=== PATIENT | male | born 1955 | race Caucasian/White ===

== ENCOUNTER 2018-02-18 18:06 | Observation (INO) | payer OTHER, SELFPAY ==
[2018-02-18] VITALS (8 sets, daily range): BP systolic 116–152; BP diastolic 80–87; PULSE 57–120; RESP 16–25; TEMP 36.7–36.8; O2SAT 97–99; BMI 24.4; BMI 23.8
--- NOTE | 2018-02-18 18:43 | EKG12_ITS ---
Test Reason : PALPS Blood Pressure : / mmHG Vent. Rate : 135 BPM Atrial Rate : 125 BPM P-R Int : 000 ms QRS Dur : 096 ms QT Int : 270 ms P-R-T Axes : 000 001 062 degrees QTc Int : 405 ms Atrial fibrillation Nonspecific ST abnormality Abnormal ECG Confirmed by JAYLA MICHELE, BRIAN ([id number]), credit collections analyst [facility] [facility]OCKWELL ([id number]) on 02/21/2018 1:31:09 PM Referred By: AMANDA/CAMILA Confirmed By:BRIAN DICKERSON MD
--- NOTE | 2018-02-18 18:56 | RAD_ITS ---
STUDY: X-RAY CHEST REASON FOR EXAM: Male, 62 years old. Palpitation TECHNIQUE: Frontal view of the chest COMPARISON: None. FINDINGS: The lungs are clear. There are no pleural effusions. There is no pneumothorax. The heart is normal in size. The visualized osseous structures are within normal limits. RAD/Chest 1 View (Portable) IMPRESSION: No acute thoracic pathology. Electronically Signed: Woodrow Smith, at 19:08 EDT Tel , Service support ,
--- NOTE | 2018-02-18 19:05 | ED.VISSUMM ---
- ER Visit Summary Date of Service: 02/18/18 Chief Complaint: Palpitations History of Present Illness: The patient is a 62 M presenting with palpitations. This started presently 4 hours prior to arrival. Patient feels his heart racing with irregular heartbeat. He denies chest pain or shortness of breath. Denies dizziness or syncope. He has not had these symptoms in the past. Denies fever or cough. He has history of Graves' disease. His medication dose was changed 4 weeks ago. No other known medical problems. He is not a smoker. Physical Examination: Vitals are stable. Heart rate 135 patient is afebrile. Alert no acute distress. HEENT exam is unremarkable. Neck is supple. Lungs are clear and equal bilaterally. Heart is irregularly irregular Abdomen is soft nontender nondistended. Extremities are unremarkable. Skin is warm and dry. No focal neurologic deficit. Remainder of exam is unremarkable. Emergency Department Course and Treatment: EKG A. fib rate of 135. He is given Cardizem IV and aspirin. CBC, chemistries unremarkable other than glucose 152. Troponin is negative. Chest x-ray shows no acute process. TSH 0.77. Repeat heart rate is 87. Will discuss with the hospitalist for observation. Disposition: Observation Impression: New onset atrial fibrillation This note was generated with [employer] dictation software. It may contain incorrect words, spelling, and punctuation that were not noted in review of the chart prior to signing ED Disposition - Plan for ED Patient: Chief Complaint: Palpitations Referrals: Anuel Mobley III, MD [Primary Care Provider] -
[2018-02-18 19:11] LABS: Absolute Lymphocyte Count 2.29 X10^3/ul (0.83-4.51); Absolute Neutrophil Count 3.4 X10^3/uL (2.0-7.7); Basophil# 0.04 X10^3/uL; Basophil% 0.6 % (0-1); Hematocrit 46.3 % (40-54); Hemoglobin 15.8 g/dl (13.0-16.5); Lymphocyte # 2.29 X10^3/ul (4.0); Lymphocyte % 34.4 % (19-41); Mean Corp Hgb Conc 34.1 g/gl (32-36); Mean Corpuscular Hgb 31.9 pg (27.0-32.0); Mean Corpuscular Volume 93.5 fL (80-94); Mean Platelet Vol. 10.1 fl (6.2-12.0); Monocyte# 0.72 X10^3/uL; Monocyte% 10.8 % (0-10); Neutrophil % 51.2 % (47-70); Platelet Count 162 K/mm3 (150-450); RBC Distribution Width CV 13.7 % (11.6-14.6); RBC Distribution Width SD 45.2 fl (35.1-43.9); Red Blood Count 4.95 M/mm3 (4.6-6.2); White Blood Count 6.7 K/mm3 (4.4-11.0)
[2018-02-18 19:13] LABS: POSITIVE COUNT NO; POSITIVE DIFFERENTIAL NO; POSITIVE MORPHOLOGY NO
[2018-02-18 19:16] LABS: Anion Gap 7 (5-15); BUN 12 mg/dL (7-18); BUN/Creat Ratio 13.5 RATIO (10-20); Calcium,Total 8.6 mg/dL (8.5-10.1); Chloride 109 mmol/L (98-107); Creatinine, Serum 0.89 mg/dL (0.70-1.30); EST Glomerular Filtration Rate 92 mL/min (>60); Est Glom Filt Rate - Afr Amer 112 mL/min (>60); Estimated Creatinine Clearance 95.67 ml/min; Glucose 152 mg/dL (74-106); Potassium 3.8 mmol/L (3.5-5.1); Sodium Level 142 mmol/L (136-145)
[2018-02-18] MEDS: dilTIAZem 25 MG/5 ML Vial 10 MG IV BOLUS (19:16)
[2018-02-18] MEDS: Aspirin 325 MG Tablet PO (19:16)
[2018-02-18 19:39] LABS: Thyroid Stim Hormone (TSH) 0.77 uIU/mL (0.358-3.74)
--- NOTE | 2018-02-18 20:16 | PCM.HP.STD ---
Problem List (1) New onset atrial fibrillation Status: Acute (2) Graves disease Status: Chronic History of Present Illness Date of Admission: 02/18/18 Chief Complaint: Palpitation. The patient is a 62 year old M with past medical history as mentioned above presented to the emergency room because of palpitation. His symptoms started around 3:30 PM today when he was sitting on a chair and started having palpitation that described as racing heart with irregular heartbeats, associated with funny feeling that he could not describe, lasted until he came to the emergency room, improved after he received IV Cardizem in the emergency room, no associated symptoms and without aggravating or relieving factors. He denied any chest pain, shortness of breath, dizziness, lightheadedness, syncope or presyncope. He denied abdominal pain, nausea or vomiting. He had a history of Graves' disease and he has been on methimazole and his dose was changed around 4 weeks ago from 5 mg methimazole up to 10 mg daily. In the emergency department, patient was in A. fib with RVR, heart rate has been in the 130s. Other vital signs were stable. He received 1 dose of IV Cardizem and heart rate slowed down to 70s, blood pressure remained stable. He remained in A. fib. Routine blood work was unremarkable troponin was negative. TSH was normal at 0.77. Chest x-ray showed no acute infiltrate, consolidation or effusion. He is being admitted for new onset A. fib with RVR. Past Medical History Past Medical History (Chronic Problems): Chronic Problems Graves disease (Chronic) Allergies No Known Allergies Allergy (Verified 11/12/16 07:41) Home Medications: Ambulatory Orders Medication Instructions Recorded Methimazole [Tapazole] 10 mg PO DAILY 02/18/18 Surgical History: - - Meniscal tear repair. Psychiatric History: No pertinent psych hx Lives: Spouse/ Significant Other Smoking Status: Never smoker Alcohol: None Drugs: None - *Family History Maternal History Items: No pertinent history Paternal History Items: No pertinent history Review of Systems Constitutional: Denies: Anorexia, Chills, Fever, Weakness Eyes: Denies: Blurred vision, Double vision, Drainage, Redness HEENT: Denies: Difficulty Hearing, Ear Pain, Eye Pain, Nasal Congestion, Sore Throat Cardiovascular: Reports: Palpitations. Denies: Chest Pain, Chest Pressure, Chest Tightness, Heaviness, Light Headedness, Orthopnea, Syncope Respiratory: Denies: Cough, Pleuritic Pain, Shortness of Breath, Sputum production, Wheezing Gastrointestinal: Denies: Abdominal Pain, Constipation, Diarrhea, Nausea, Vomiting Genitourinary: Denies: Dysuria, Frequency, Hematuria Musculoskeletal: Denies: Arm Pain, Back Pain, Foot Pain Skin: Denies: Dryness, Rash Neurological: Denies: Balance problems, Double vision, Change in Speech, Slurred speech, Focal weakness, Headaches, Incoordination Psychiatric: Denies: Anxiety, Depression Endocrine: Denies: Change in Body Habitus, Polydipsia VTE Information - Inpt Only VTE Present on Admission: No VTE Mechan Device Prophylaxis: None VTE Pharm Prophylaxis ordered?: Yes Patient Problems: Active and Suspected Problems New onset atrial fibrillation (Acute) - Physical Exam General: Alert, Oriented x3, Cooperative, No apparent distress HEENT: Atraumatic, PERRLA, EOMI Oral: Moist Mucosa, No Gingival or Mucosal Lesions/ Ulcerations Neck: Supple, No JVD, Negative Carotid Bruits, Trachea Midline, Thyroid Normal Size and Texture Lungs: Clear to auscultation, No rhonchi, No wheeze, No rales Cardiovascular: Normal S1, Normal S2, No murmurs, PMI Normal, Irregular Rate Abdomen: Bowel Sounds Present, Soft, Non Tender, Non-Distended, No Hepato-splenomegaly Extremities: No clubbing, No cyanosis, No edema Skin: No rashes, No breakdown Lymphatic: No Cervical, Supraclavicular, or Inguinal Adenopathy Neurological: Cranial nerves II-XII grossly intact, Motor Exam 5/5 strength throughout Psych/Mental Status: Normal Affect, Appropriate, Alert and oriented to time, place, person, mood and affect Vital Signs Temp Pulse Resp BP Pulse Ox 98.2 F 87 25 H 116/84 H 99 02/18/18 18:08 02/18/18 19:40 02/18/18 19:40 02/18/18 19:40 02/18/18 19:40 Oxygen Flow Rate (L/min) 2 Oxygen Delivery Method Nasal Cannula Weight: 180 lb Body Mass Index (BMI) 24.4 Laboratory Tests Past 24 Hrs 02/18/18 02/18/18 02/18/18 18:19 18:19 18:19 WBC 6.7 RBC 4.95 Hgb 15.8 Hct 46.3 MCV 93.5 MCH 31.9 MCHC 34.1 RDW 13.7 RDW Differential 45.2 H Plt Count 162 MPV 10.1 Immature Gran % (Auto) 0.000 Neut % (Auto) 51.2 Lymph % (Auto) 34.4 [place] % (Auto) 10.8 H Eos % (Auto) 3.0 Baso % (Auto) 0.6 Absolute Neuts (auto) 3.4 Absolute Lymphs (auto) 2.29 Total Counted Not Reportable Sodium 142 Potassium 3.8 Chloride 109 H Carbon Dioxide 26.0 Anion Gap 7 BUN 12 Creatinine 0.89 Estim Creat Clear Calc 95.67 Est GFR (MDRD) Af Amer 112 Est GFR (MDRD) Non-Af 92 BUN/Creatinine Ratio 13.5 Glucose 152 H Calcium 8.6 Troponin I < 0.02 TSH 0.77 Clinical Impression(s) from Imaging Studies Chest X-Ray 02/18/18 18:56 IMPRESSION: No acute thoracic pathology. Electronically Signed: Woodrow Smith, at 19:08 EDT Tel , Service support , Assessment/Plan Active and Suspected Problems New onset atrial fibrillation (Acute) This is a 62 years old male patient presented to the emergency room because of palpitation and irregular heartbeats, found to have new onset A. fib with RVR and he is being admitted for evaluation. #1 new onset A. fib with RVR: Without prior history of cardiac disease. He does have a history of Graves' disease and she is on methimazole. Dose of methimazole change 4 weeks ago. Initially, EKG revealed A. fib with RVR, rate was in the 135. Received 1 dose of IV Cardizem, rate is down to 70s, blood pressure stable. TSH was normal. Troponin is negative. Chest x-ray showed no acute findings. Plan: Admit to PCU, cardiac monitoring, serial cardiac enzymes, repeat EKG tomorrow morning, 2D echocardiogram, check free and total T3, free and total T4, aspirin 81 mg p.o. daily, start metoprolol 25 mg p.o. twice daily for rate control. His CHA2 DS2-VASc score is 0. He is at low risk for stroke and no indication for anticoagulation. #2 Graves' disease: On methimazole. Dose increased to 10 mg p.o. daily 4 weeks ago. TSH is normal. Will check T4 total and free as well as T3 total and free. #3 DVT prophylaxis: Subcu Lovenox. This note was generated with [employer] dictation software. It may contain incorrect words, spelling, and punctuation that were not noted in checking the note before signing. Code Visit Inpatient E&M: 74661 Init Hosp L3
--- NOTE | 2018-02-18 20:55 | ECHOCS_ITS ---
Reason For Study: Afib Procedure This was a 2D Doppler, Color Flow transthoracic echocardiogram. Exam performed portable in patient room. Left Ventricle Normal LV size. Left ventricular systolic function is normal. The estimated ejection fraction is 60 %. There is evidence of diastolic dysfunction. No regional wall motion abnormalities noted. Right Ventricle Normal RV size. Normal systolic function. Atria Normal left atrium. The right atrium is mildly enlarged. Mitral Valve Mild mitral valve prolapse. Tricuspid Valve Normal tricuspid valve. Mild tricuspid valve insufficiency. Pulmonary artery systolic pressure is 29 mmHg. Aortic Valve Normal aortic valve. Trisinus/trileaflet aortic valve. Pulmonic Valve Normal pulmonic valve. Great Vessels Normal aortic root. The pulmonary artery is normal size. Normal inferior vena cava. Pericardium/Pleural No pericardial effusion. Medication Diluted definity 2ml given slow IV push to enhance endocardial definition. MMode/2D Measurements & Calculations LVIDd: 5.2 cm IVSd: 1.1 cm Ao root diam: 3.9 cm LVIDs: 3.2 cm LVPWd: 0.81 cm LA dimension: 2.8 cm RVDd: 3.9 cm FS: 37.8 % LAV(MOD-sp4): 37.4 ml LA A4 area: 16.2 cm2 RA A4 area: 25.1 cm2 Time Measurements MV dec time: 0.33 sec Doppler Measurements & Calculations MV E max seven: 55.5 cm/sec Lat Peak E' Seven: 11.1 cm/sec Med Peak E' Seven: 10.2 cm/sec MV A max seven: 45.0 cm/sec E/E' lat: 5.0 E/E' med: 5.4 MV E/A: 1.2 MV V2 max: 59.6 cm/sec MV P1/2t max seven: 60.8 cm/sec Ao V2 max: 93.8 cm/sec MV max P.4 mmHg MV P1/2t: 152.5 msec Ao max P.5 mmHg MV V2 mean: 33.5 cm/sec MV dec slope: 116.7 cm/sec2 Ao V2 mean: 60.1 cm/sec MV mean P.52 mmHg MVA(P1/2t): 1.4 cm2 Ao mean P.7 mmHg MV V2 VTI: 22.2 cm Ao V2 VTI: 20.2 cm LV V1 max: 83.0 cm/sec PA V2 max: 62.1 cm/sec TR max seven: 257.1 cm/sec LV V1 max P.8 mmHg TR max P.4 mmHg LV V1 mean P.3 mmHg LV V1 mean: 51.5 cm/sec LV V1 VTI: 19.5 cm Interpretation Summary Normal LV size. Left ventricular systolic function is normal. The estimated ejection fraction is 60 %. Mild mitral valve prolapse. Mild tricuspid valve insufficiency. Contrast injection was performed. Ordering Physician: Sheila Thomason Referring Physician: YARIEL Mobley M.D. Performed By: Sony Ortega RCS
[2018-02-18] MEDS: 0.9% Normal Saline 1,000 ML 75 ML IV (21:31)
[2018-02-18] MEDS: Metoprolol Tartrate 25 MG Tablet PO (21:31)
[2018-02-18] MEDS: 0.9% NaCl Peripheral Flush Adult/Peds IV (21:31)
[2018-02-18 21:43] LABS: Free T3 2.9 pg/mL (2.18-3.98); T4 Total, Thyroxin 7.4 ug/dL (4.5-12.1)
[2018-02-19] VITALS (8 sets, daily range): BP systolic 115–123; BP diastolic 65–75; PULSE 54–79; RESP 16; TEMP 36.8–36.9; O2SAT 95–98
--- NOTE | 2018-02-19 05:55 | EKG12_ITS ---
Test Reason : RHYTHM CHANGE Blood Pressure : / mmHG Vent. Rate : 058 BPM Atrial Rate : 058 BPM P-R Int : 176 ms QRS Dur : 102 ms QT Int : 414 ms P-R-T Axes : 023 007 032 degrees QTc Int : 406 ms Sinus bradycardia Otherwise normal ECG When compared with ECG of 21-FEB-2012 09:43, No significant change was found Confirmed by LIS MICHELE, OLIVIA ([id number]), associate entertainment editor [facility] [facility] ([id number]) on 02/21/2018 2:26:49 PM Referred By: YOEL Confirmed By:OLIVIA HAYS MD
--- NOTE | 2018-02-19 06:26 | NURSING ---
Critical platelet result of 49 given to Radha Melchor RN
[2018-02-19] MEDS: Methimazole 5 MG Tablet 10 MG PO (09:26)
[2018-02-19] MEDS: Metoprolol Tartrate 25 MG Tablet PO (09:26)
[2018-02-19] MEDS: Aspirin 81 MG TAB.CHEW PO (09:26)
[2018-02-19] MEDS: Enoxaparin 40 MG/0.4 ML Syringe SC (09:26)
[2018-02-19 09:32] LABS: T3 Total - Triiodothyronine 1.04 ng/mL (0.6-1.81)
[2018-02-19 10:17] LABS: Hemoglobin A1c 5.4 % (4.2-6.3)
--- NOTE | 2018-02-19 11:24 | DCINST_ITS ---
Addendum entered and electronically signed by BILLY Natarajan 02/19/18 12:20: Please follow up with Dr. Polk with [facility] in 1-2 weeks. Original Note: - Discharge Diagnoses Current Active Problems: Current Active and Chronic Problems Graves disease (Chronic) New onset atrial fibrillation (Acute) You will use the following diet at home:: Cardiac Your food should be the consistency of: Regular Your liquids should be the consistency of: Regular/Thin Discharge Activity: Return to Normal Activity Allergies/Adverse Reactions: Allergies No Known Allergies Allergy (Verified 02/18/18 21:01) Medications to take at Discharge Methimazole [Tapazole] 10 mg PO DAILY 02/18/18 Aspirin [Aspirin, Baby] 81 mg PO DAILY@0800 tab.chew 02/19/18 Metoprolol Tartrate [Lopressor (beta sanket)] 25 mg PO BID #60 tab 02/19/18 The following prescriptions were given: Metoprolol Tartrate [Lopressor (beta sanket)] 25 mg PO BID #60 tab Primary Care Physician: Anuel Mobley III, MD [Primary Care Provider] - Please follow up with your Primary Care Physician in: 1-2 weeks Please Follow Up With: Endocrinology When: 1-2 weeks Proposed Discharge Date: 02/19/18
--- NOTE | 2018-02-19 13:23 | PCM.DC.SUM ---
Discharge Date and Diagnosis Date of Admission: 02/18/18 Date of Discharge: 02/19/18 - Primary Discharge Diagnosis New onset Afib with RVR Graves' Disease - Secondary Discharge Diagnosis Chronic Problems Graves disease (Chronic) Hospital Course and Treatment Imaging Results: RAD/Chest 1 View (Portable) IMPRESSION: No acute thoracic pathology. Echo: Interpretation Summary Normal LV size. Left ventricular systolic function is normal. The estimated ejection fraction is 60 %. Mild mitral valve prolapse. Mild tricuspid valve insufficiency. Contrast injection was performed. Operations: None Procedures: 2-D Echocardiogram Summary of Care Provided: Physical exam on day of discharge: General: Resting comfortably NAD Psych: A/Ox3 normal affect HEENT: PEARRLA AT NC Neck: Supple NT CV: RRR no m/t/r/g/h Resp: CTA Abd: [id number] Soft NT no guarding or rigidity Ext: DP2+= no edema Skin: W/D normal turgor Lymph/Heme: No active bleeding or adenopathy Neuro: CN2-12 intact Hospital course: The patient is a 62 year old M with a hx of graves' disease who presented to the ER with palpitations and fatigue. He was found to be in AF with RVR. He recevied 10 mg IV cardizem bolus in the ER and converted. He was then admitted to the hospital and placed on metoprolol 25 twice daily. He had negative EKG, troponin, chest x-ray. He was noted that the patient had stopped taking his Toprol 50 about a month prior. Troponin was negative ?4, TSH, free T4, thyroxine, free T3, total T3 were all negative. He presented with some hyperglycemia and A1c was checked, but it was normal at 5.4. He also had his methimazole decreased by 5 mg per day about a month prior as well. We obtained an echocardiogram which was unremarkable. After being admitted he had no further issues he had no symptoms. His chads vascular score was 0 so he was now placed on oral anticoagulation. He was discharged home in stable condition he was advised to follow-up with cardiology as an outpatient 1-2 weeks, follow-up with his steam press operator, and follow-up with his PCP. This patient was seen by Roger Cedeno PA-C under the supervision of Doctor Dennis. [] Discharge Diet: Low fat/ Low Cholesterol, 2000 mg Sodium Diet Discharge Activity: Return to Normal Activity Home Medications: Medications to take at Discharge Methimazole [Tapazole] 10 mg PO DAILY 02/18/18 Aspirin [Aspirin, Baby] 81 mg PO DAILY@0800 tab.chew 02/19/18 Metoprolol Tartrate [Lopressor (beta sanket)] 25 mg PO BID #60 tab 02/19/18 Following Prescrptions Were Given to Patient: Metoprolol Tartrate [Lopressor (beta saknet)] 25 mg PO BID #60 tab Primary Care Physician: Anuel Mobley III, MD [Primary Care Provider] - Please follow up with your Primary Care Physician in: 1-2 weeks Please Follow Up With: Endocrinology When: 1-2 weeks Please Follow Up With: Jamaal Polk MD When: 1-2 weeks Disposition: Home Minutes spent on discharge:: 35 Patient Condition:: Stable Medical Necessity - Tobacco Use Smoking Status: Never smoker Meaningful Use Info Meaningful Use Diagnoses (Choose all that apply): None applicable
--- NOTE | 2018-02-19 13:29 | DS.PCM_ITS ---
Discharge Date and Diagnosis Date of Admission: 02/18/18 Date of Discharge: 02/19/18 - Primary Discharge Diagnosis New onset Afib with RVR Graves' Disease - Secondary Discharge Diagnosis Chronic Problems Graves disease (Chronic) Hospital Course and Treatment Imaging Results: RAD/Chest 1 View (Portable) IMPRESSION: No acute thoracic pathology. Echo: Interpretation Summary Normal LV size. Left ventricular systolic function is normal. The estimated ejection fraction is 60 %. Mild mitral valve prolapse. Mild tricuspid valve insufficiency. Contrast injection was performed. Operations: None Procedures: 2-D Echocardiogram Summary of Care Provided: Physical exam on day of discharge: General: Resting comfortably NAD Psych: A/Ox3 normal affect HEENT: PEARRLA AT NC Neck: Supple NT CV: RRR no m/t/r/g/h Resp: CTA Abd: [id number] Soft NT no guarding or rigidity Ext: DP2+= no edema Skin: W/D normal turgor Lymph/Heme: No active bleeding or adenopathy Neuro: CN2-12 intact Hospital course: The patient is a 62 year old M with a hx of graves' disease who presented to the ER with palpitations and fatigue. He was found to be in AF with RVR. He recevied 10 mg IV cardizem bolus in the ER and converted. He was then admitted to the hospital and placed on metoprolol 25 twice daily. He had negative EKG, troponin, chest x-ray. He was noted that the patient had stopped taking his Toprol 50 about a month prior. Troponin was negative ?4, TSH, free T4, thyroxine, free T3, total T3 were all negative. He presented with some hyperglycemia and A1c was checked, but it was normal at 5.4. He also had his methimazole decreased by 5 mg per day about a month prior as well. We obtained an echocardiogram which was unremarkable. After being admitted he had no further issues he had no symptoms. His chads vascular score was 0 so he was now placed on oral anticoagulation. He was discharged home in stable condition he was advised to follow-up with cardiology as an outpatient 1-2 weeks, follow- up with his certified travel counselor, and follow-up with his PCP. This patient was seen by Roger Cedeno PA-C under the supervision of Doctor Dennis. [] Discharge Diet: Low fat/ Low Cholesterol, 2000 mg Sodium Diet Discharge Activity: Return to Normal Activity Home Medications: Medications to take at Discharge Methimazole [Tapazole] 10 mg PO DAILY 02/18/18 Aspirin [Aspirin, Baby] 81 mg PO DAILY@0800 tab.chew 02/19/18 Metoprolol Tartrate [Lopressor (beta sanket)] 25 mg PO BID #60 tab 02/19/18 Following Prescrptions Were Given to Patient: Metoprolol Tartrate [Lopressor (beta sanket)] 25 mg PO BID #60 tab Primary Care Physician: Anuel Mobley III, MD [Primary Care Provider] - Please follow up with your Primary Care Physician in: 1-2 weeks Please Follow Up With: Endocrinology When: 1-2 weeks Please Follow Up With: Jamaal Polk MD When: 1-2 weeks Disposition: Home Minutes spent on discharge:: 35 Patient Condition:: Stable Medical Necessity - Tobacco Use Smoking Status: Never smoker Meaningful Use Info Meaningful Use Diagnoses (Choose all that apply): None applicable
== END 2018-02-19 12:29 | disposition home or self-care (01) ==
LOC: ED 19:24 → PCU 20:42
PROVIDERS: Physician Assistant; Admitting Provider Hospitalist; Emergency Provider Emergency Medicine; Family Provider Family Medicine; PCP Family Medicine; Visit Provider Internal Medicine
DX: I48.91 Unspecified atrial fibrillation (principal); E05.00 Thyrotoxicosis with diffuse goiter without thyrotoxic crisis or storm; Z79.899 Other long term (current) drug therapy
CPT/HCPCS: 36415; 71045; 80048; 83036; 84436; 84439; 84443; 84480; 84481; 84484; 85025; 93005; 93306; 96361; 96372; 96374; 99218; 99283; J7030; Q9957; A4216; C8929; G0378

== ENCOUNTER 2018-02-27 22:30 | Emergency (ER) | payer OTHER, SELFPAY ==
[2018-02-27 22:32] VITALS: BP 133/81; PULSE 61; RESP 18; TEMP 36.8; O2SAT 95; BMI 23.7
--- NOTE | 2018-02-27 22:37 | ED.RN ---
CALLED FOR AN EKG PER REQUEST OF NURSE. PULLED OLD EKG PER PROTOCAL.
[2018-02-27 22:45] VITALS: BP 137/85; PULSE 59; RESP 19; O2SAT 97
--- NOTE | 2018-02-27 22:55 | EKG12_ITS ---
Test Reason : PALPITATIONS Blood Pressure : / mmHG Vent. Rate : 061 BPM Atrial Rate : 061 BPM P-R Int : 170 ms QRS Dur : 100 ms QT Int : 408 ms P-R-T Axes : 052 006 036 degrees QTc Int : 410 ms Normal sinus rhythm Normal ECG Confirmed by LIS MICHELE, OLIVIA ([id number]), legal editor [facility] ([id number]) on 03/02/2018 2:04:33 PM Referred By: ELSIE Confirmed By:OLIVIA HAYS MD
[2018-02-27 22:56] VITALS: O2SAT 96
--- NOTE | 2018-02-27 22:56 | ED.VISSUMM ---
- ER Visit Summary Date of Service: 02/27/18 Chief Complaint: Palpitations History of Present Illness: The patient is a 62 M with Graves' disease and recent admission for paroxysmal atrial fibrillation who presents for palpitations since yesterday. Patient has been having episodes of his heart racing, with associated fatigue, nausea, and now a headache. Patient currently is not having sensation of palpitations. He denies chest pain, shortness of breath, dizziness or lightheadedness, weight loss, fevers, sweats. He was evaluated 1 week ago and diagnosed with paroxysmal atrial fibrillation. He is on metoprolol now. He been on methimazole and a beta-sanket for treatment of his Graves' disease, but the medications were changed approximately 1 month prior to onset of his A. fib. Patient is currently on methimazole and now on metoprolol since the hospitalization. He denies alcohol, tobacco or drug use. He is not on any coagulants. He takes one baby aspirin daily. She has an appointment with Dr. Polk tomorrow. Physical Examination: Vital signs: afebrile, hemodynamically stable, no hypoxia on room air General: well nourished, well developed, in no distress Skin: warm, dry, no rash, no pallor HEENT: normocephalic and atraumatic; PERRL, EOMI, no exophthalmos, moist mucous membranes Cardiovascular: regular rate and rhythm without murmurs, no peripheral edema, 2+ pulses all distal extremities Respiratory: No increased work of breathing, lungs are clear to auscultation bilaterally, no rales, rhonchi or wheezing Abdominal: Abdomen is soft, nontender with normoactive bowel sounds, no guarding or rebound, no masses MSK: Moves all extremities, no deformities, normal strength Neuro: Awake and alert, oriented ?4. No facial droop, sensation and motor function intact and symmetric Test Results: Abnormal Lab Results 02/27/18 02/27/18 22:40 22:40 WBC 6.6 RBC 4.51 L Hgb 14.1 Hct 42.0 MCV 93.1 MCH 31.3 MCHC 33.6 RDW 13.6 RDW Differential 46.2 H Plt Count 148 L MPV 10.2 Immature Gran % (Auto) 0.000 Neut % (Auto) 73.7 H Lymph % (Auto) 13.7 L [place] % (Auto) 11.3 H Eos % (Auto) 1.1 Baso % (Auto) 0.2 Absolute Neuts (auto) 4.9 Absolute Lymphs (auto) 0.91 Total Counted Not Reportable Sodium 139 Potassium 3.9 Chloride 105 Carbon Dioxide 26.0 Anion Gap 8 BUN 19 H Creatinine 0.95 Estim Creat Clear Calc 89.63 Est GFR (MDRD) Af Amer 104 Est GFR (MDRD) Non-Af 86 BUN/Creatinine Ratio 20.0 Glucose 129 H Calcium 8.2 L Magnesium 1.9 Troponin I < 0.015 TSH 0.86 Emergency Department Course and Treatment: EKG shows a normal sinus rhythm at a rate of 61, no ischemic changes and unchanged from patient's baseline EKG. Cardiac monitoring shows no ectopy or episodes of A. fib. Workup was performed to look for any possible lab derangements that might have made patient's threshold for going back into A. fib more likely. TSH was within normal limits. Troponin negative. No electrolyte derangements. No leukocytosis or significant anemia. Patient was given IV hydration in the emergency department. Because of his headache, fatigue and nausea, we did discuss that he may be coming down with a viral illness. He is well-appearing at this time and on reevaluation has had no other episodes of palpitations. He feels well enough to go home, and he already has an appointment for follow-up with Dr. Polk tomorrow. Patient will keep this appointment. He will return if any worsening of his condition. Discharged home. Treatment Plan: [] Disposition: [] Impression: Paroxysmal atrial fibrillation This note was generated with [employer] dictation software. It may contain incorrect words, spelling, and punctuation that were not noted in review of the chart prior to signing ED Disposition - Plan for ED Patient: Disposition: Home or Assisted Living Chief Complaint: Palpitations Instructions: ED Afib Referrals: Jamaal Polk MD [STAFF PHYSICIAN] - 1 Day Anuel Mobley III, MD [Primary Care Provider] - Additional Instructions: Please keep your appointment with Dr. Polk tomorrow. Continue all medications as prescribed. If you have any further episodes of palpitations, especially if you have associated shortness of breath, chest pain, lightheadedness or dizziness, or any other complaints, please return immediately to the emergency department for another evaluation.
[2018-02-27] MEDS: 0.9% Normal Saline 1,000 ML 1000 ML IV (23:01)
[2018-02-27 23:06] LABS: Absolute Lymphocyte Count 0.91 X10^3/ul (0.83-4.51); Absolute Neutrophil Count 4.9 X10^3/uL (2.0-7.7); Basophil# 0.01 X10^3/uL; Basophil% 0.2 % (0-1); Eosinophil# 0.07 X10^3/uL; Eosinophils% 1.1 % (0-5); Hemoglobin 14.1 g/dl (13.0-16.5); Lymphocyte # 0.91 X10^3/ul (4.0); Lymphocyte % 13.7 % (19-41); Mean Corp Hgb Conc 33.6 g/gl (32-36); Mean Corpuscular Hgb 31.3 pg (27.0-32.0); Mean Corpuscular Volume 93.1 fL (80-94); Mean Platelet Vol. 10.2 fl (6.2-12.0); Monocyte# 0.75 X10^3/uL; Monocyte% 11.3 % (0-10); Neutrophil # 4.89 X10^3/uL (2.7-7.7); Neutrophil % 73.7 % (47-70); POSITIVE COUNT NO; POSITIVE DIFFERENTIAL NO; POSITIVE MORPHOLOGY NO; Platelet Count 148 K/mm3 (150-450); RBC Distribution Width CV 13.6 % (11.6-14.6); RBC Distribution Width SD 46.2 fl (35.1-43.9); Red Blood Count 4.51 M/mm3 (4.6-6.2); White Blood Count 6.6 K/mm3 (4.4-11.0)
[2018-02-27 23:24] LABS: Anion Gap 8 (5-15); BUN 19 mg/dL (7-18); Calcium,Total 8.2 mg/dL (8.5-10.1); Chloride 105 mmol/L (98-107); Creatinine, Serum 0.95 mg/dL (0.70-1.30); EST Glomerular Filtration Rate 86 mL/min (>60); Est Glom Filt Rate - Afr Amer 104 mL/min (>60); Estimated Creatinine Clearance 89.63 ml/min; Glucose 129 mg/dL (74-106); Magnesium 1.9 mg/dL (1.6-2.6); Potassium 3.9 mmol/L (3.5-5.1); Sodium Level 139 mmol/L (136-145); Thyroid Stim Hormone (TSH) 0.86 uIU/mL (0.358-3.74)
[2018-02-27 23:35] VITALS: BP 118/70; PULSE 58; RESP 16; O2SAT 96
--- NOTE | 2018-02-27 23:40 | ED.DEP ---
ED Disposition - Plan for ED Patient: Disposition: Home or Assisted Living Chief Complaint: Palpitations Instructions: ED Afib Referrals: Anuel Mobley III, MD [Primary Care Provider] - Jamaal Polk MD [STAFF PHYSICIAN] - 1 Day Additional Instructions: Please keep your appointment with Dr. Polk tomorrow. Continue all medications as prescribed. If you have any further episodes of palpitations, especially if you have associated shortness of breath, chest pain, lightheadedness or dizziness, or any other complaints, please return immediately to the emergency department for another evaluation.
[2018-02-27 23:47] VITALS: BP 133/96; PULSE 66; RESP 16; O2SAT 96
== END 2018-02-27 23:52 | disposition home or self-care (01) ==
PROVIDERS: Emergency Provider Emergency Medicine; Family Provider Family Medicine; PCP Family Medicine
DX: I48.0 Paroxysmal atrial fibrillation (principal); E05.00 Thyrotoxicosis with diffuse goiter without thyrotoxic crisis or storm; Z79.82 Long term (current) use of aspirin; Z79.899 Other long term (current) drug therapy
CPT/HCPCS: 80048; 83735; 84443; 84484; 85025; 93005; 96360; 99284; J7030; A4216

== ENCOUNTER → 2018-09-18 10:54 | Outpatient (CLI) | payer OTHER, SELFPAY ==
[2018-08-24 12:45] VITALS: BMI 24.4
[2018-09-18 12:13] LABS: T4 Free Direct 0.93 ng/dL (0.76-1.46)
== END ==
PROVIDERS: Family Provider Family Medicine; PCP Family Medicine
DX: E05.00 Thyrotoxicosis with diffuse goiter without thyrotoxic crisis or storm (principal)
CPT/HCPCS: 36415; 84439; 84481

== ENCOUNTER → 2019-05-21 | Outpatient (CLI) | payer OTHER, SELFPAY ==
--- NOTE | 2019-05-21 09:17 | US_ITS ---
STUDY: ABDOMINAL ULTRASOUND REASON FOR EXAM: Male, 63 years old. Abdominal pain TECHNIQUE: Transabdominal ultrasound was performed with real-time and static díaz scale imaging. TECHNICAL QUALITY: Adequate. COMPARISON: None. FINDINGS: Liver: The liver measures 13.6 cm. There is normal echogenicity of the liver. The bile ducts are within normal limits. There is hepatic color flow. The direction of portal flow is hepatopetal. There is no demonstrated mass lesion. Portal vein measurement: Gallbladder: Normal distended gallbladder. The gallbladder wall measures 1.4 mm. There is a negative sonographic Ordonez's sign. There is no pericholecystic fluid. There are no gallstones. Common Bile Duct (C.B.D.): The common bile duct measures 4.3 mm. Pancreas: Normal size of the head, body and tail of the pancreas. There is normal echogenicity of the pancreas. There is no demonstrated pancreatic mass or cyst. Spleen: Normal size of the spleen. The spleen measures 10.8 x 5 x 3.9 cm. Right Kidney: Normal size of the right kidney. The right kidney measures 10.4 x 5.9 x 5.0 cm. Normal renal cortex. The right cortex measures 1.1 cm. There is no demonstrated renal mass or cyst. There is no right hydronephrosis. Left Kidney: Normal size of the left kidney. The left kidney measures 10.7 x 5 x 4.4 cm. Normal renal cortex. The left cortex measures 1.3 cm. There is no demonstrated renal mass or cyst. There is no left hydronephrosis. Aorta: 2.3 x 2.2 x 2.2 I.V.C.: The IVC is patent. There is no ascites. US/Abdomen Complete IMPRESSION: Normal ultrasound of the abdomen. There is NO cholelithiasis, cholecystitis or biliary ductal dilatation. Electronically Signed: Adilson Hernandez MD at 17:08 EDT , Service support ,
== END | disposition home or self-care (01) ==
LOC: US 09:14
PROVIDERS: Family Provider Family Medicine; PCP Family Medicine; Referring Provider Internal Medicine Endocrinology, Diabetes & Metabolism; Visit Provider Internal Medicine Endocrinology, Diabetes & Metabolism
DX: R74.8 Abnormal levels of other serum enzymes (principal)
CPT/HCPCS: 76700

== ENCOUNTER → 2022-09-14 | Outpatient (CLI) | payer MEDICARE, BC, SELFPAY ==
--- NOTE | 2022-09-14 06:18 | ECHOD_ITS ---
Version 2 Reason For Study: CHEST PAIN Procedure This was a 2D Doppler, Color Flow transthoracic echocardiogram. Exam performed in department. Left Ventricle Normal LV size. Left ventricular systolic function is normal. The estimated ejection fraction is 60 %. Stage 1 diastolic dysfunction. No regional wall motion abnormalities noted. Right Ventricle Normal RV size. Normal systolic function. Atria Normal left atrium. Normal right atrium. Hypermobile atrial septum. Bubble contrast study negative for right to left interatrial shunt. Mitral Valve Normal mitral valve. Mild (1+) eccentric mitral valve insufficiency. Tricuspid Valve Moderate diffuse thickening of the tricuspid valve. Mild tricuspid valve insufficiency. Pulmonary artery systolic pressure is 25 mmHg. Aortic Valve Normal aortic valve. Trisinus/trileaflet aortic valve. Pulmonic Valve Normal pulmonic valve. Great Vessels Normal aortic root. The pulmonary artery is normal size. Normal inferior vena cava. Pericardium/Pleural No pericardial effusion. Medication Performed a rapid injection of agitated mix of 9 cc saline and 1cc air to assess for atrial septal defect. MMode/2D Measurements & Calculations LVIDd: 5.2 cm IVSd: 1.1 cm Ao root diam: 3.7 cm LVIDs: 3.1 cm LVPWd: 0.89 cm RVDd: 4.2 cm FS: 39.4 % LAV(MOD-bp): 73.5 ml LVAd ap4: 26.7 cm2 SV(MOD-sp4): 46.1 ml LAV(MOD-bp) Indexed: 36.5 ml/m2 LVLd ap4: 7.0 cm LAV(MOD-sp2): 107.6 ml EDV(MOD-sp4): 85.8 ml LAV(MOD-sp4): 49.7 ml EDV(sp4-el): 86.0 ml LVAs ap4: 17.4 cm2 LVLs ap4: 6.5 cm ESV(MOD-sp4): 39.8 ml ESV(sp4-el): 39.3 ml EF(MOD-sp4): 53.7 % EF(sp4-el): 54.3 % SV(sp4-el): 46.7 ml LA A4 area: 19.3 cm2 LA dimension(2D): 3.4 cm RA A4 area: 18.6 cm2 Time Measurements MV dec time: 0.33 sec Doppler Measurements & Calculations MV E max seven: 36.2 cm/sec Lat Peak E' Seven: 7.7 cm/sec Med Peak E' Seven: 6.8 cm/sec MV A max seven: 49.7 cm/sec E/E' lat: 4.7 E/E' med: 5.3 MV E/A: 0.73 MV V2 max: 46.2 cm/sec MV dec slope: 109.2 cm/sec2 Ao V2 max: 84.3 cm/sec MV max P.86 mmHg Ao max P.8 mmHg MV V2 mean: 28.8 cm/sec Ao V2 mean: 58.2 cm/sec MV mean P.38 mmHg Ao mean P.6 mmHg MV V2 VTI: 12.4 cm Ao V2 VTI: 18.6 cm AV (velocity ratio): 0.97 LV V1 max: 81.6 cm/sec TR max seven: 236.9 cm/sec LV V1 max P.7 mmHg TR max P.4 mmHg LV V1 mean P.4 mmHg LV V1 mean: 54.4 cm/sec LV V1 VTI: 18.0 cm ECHO/Echo Complete Interpretation Summary Hypermobile atrial septum. Normal LV size. Left ventricular systolic function is normal. The estimated ejection fraction is 60 %. Bubble contrast study negative for right to left interatrial shunt. Stage 1 diastolic dysfunction. Ordering Physician: Jamaal Polk Referring Physician: Liliana Cherry M.D. Performed By: Elizabeth Christei RCS
--- NOTE | 2022-09-14 08:32 | STRESSREP_ITS ---
Stress Test Report Exercise myocardial perfusion stress test. [67-year-old man with a history of coronary artery disease.] Stress protocol: Resting EKG demonstrates [normal sinus rhythm with a rate of 67] bpm resting blood pressure is [122/70] mmHg. The patient exercised according to the regular Clement protocol for a total duration of 12 minutes attaining a maximum heart rate of 150 bpm which was 97 of max impacted heart rate the maximum workload was 13.4 metabolic equivalents. At rest there were no ST or T wave changes noted suggest ischemia and at peak exercise upsloping ST changes only were noted we did not meet the criteria for ischemia. No clinical angina was noted the test was terminated due to the target heart rate being achieved. The peak blood pressure was 162/64 mmHg. Rate-pressure product was 22,500. Myocardial perfusion protocol. 11.4 mCi of technetium 99m sestamibi was injected at rest. The patient exercised according to regular Clement protocol for total duration of 12 minutes and at peak exercise 33.1 mCi of technetium 99m sestamibi was injected stress images were obtained stress and rest images were reconstructed in comparing the short axis vertical long and horizontal long axis. Gated images were also obtained. Perfusion SPECT analysis: Review of the stress images demonstrate normal uptake of tracer noted in all ar eas of the myocardium. The resting images similarly demonstrate normal uptake of tracer noted in all areas of the myocardium. No areas of reversibility are noted to suggest ischemia no previous infarct was noted. A small apical defect was noted and an infarct cannot be completely excluded. Gated SPECT analysis: The gated ejection fraction is 65. Conclusion: Normal exercise myocardial perfusion stress test at a high workload. Preserved ejection fraction.
== END | disposition home or self-care (01) ==
LOC: CVS 06:17
PROVIDERS: PCP Internal Medicine; Visit Provider Internal Medicine Cardiovascular Disease
DX: R07.9 Chest pain, unspecified (principal); I25.10 Atherosclerotic heart disease of native coronary artery without angina pectoris
CPT/HCPCS: 78452; 93017; 93306; A9500; A4216

== ENCOUNTER 2024-11-19 17:32 | Emergency (ER) | payer MEDICARE, BC, SELFPAY ==
[2024-11-19 17:32] VITALS: BP 153/100; PULSE 79; RESP 16; TEMP 36.8; O2SAT 98; BMI 25.0
--- NOTE | 2024-11-19 17:52 | EX.ED.DYSGE1 ---
HPI History of Present Illness Chief Complaint: Wound Detail of Chief Complaint: Puncture wound between the webspace of the right thumb and index finger Informant: patient Onset/Context/Timing Onset: Yesterday Context: Sudden Onset Timing: Continuous Quality: Swelling and redness Location: Webspace of right thumb and index finger and thenar eminence and dorsal miles Current Severity: Mild Maximum Severity: Mild Worsened by: Puncture wound with caulking gun Relieved by: Nothing Associated Symptoms Associated Symptoms: No constitutional symptoms Narrative Narrative: Patient is a 69-year-old [id number] male presents with puncture wound to the webspace of the right thumb and index finger. Fluctuance near the MCP joint of the right thumb ulnar side. Patient denies fever, chills night sweats. Patient denies history of rheumatic fever, heart murmur or SBE. Patient is on no immunosuppressive meds. Patient does have hives to amoxicillin. Puncture wound was due to up piece of metal on the caulking gun that had material on it. Patient has not noted any drainage from the wound. Prior similar symptoms: No Recent Illness/Hospitalization: No PFSH PFS Medical History (Updated 11/19/24 @ 18:[address] Imtiaz Tapia MD) H/O radioactive iodine thyroid ablation (05/2019) Paroxysmal atrial fibrillation (02/2018) Nonrheumatic mitral valve prolapse Calcium renal calculus Graves disease New onset atrial fibrillation (~02/2018) Home Medications ?Medication ?Instructions ?Recorded ?Last Taken ?Type levothyroxine 112 mcg tablet 112 mcg PO DAILY 08/25/22 Unknown History clindamycin HCl 300 mg capsule 300 mg PO Q6H #28 CAPSULES 11/19/24 Unknown Rx (Cleocin HCl) Allergy/AdvReac Type Severity Reaction Status Date / Time amoxicillin (From Augmentin) Allergy hives Verified 11/19/24 17:34 clavulanic acid (From Allergy hives Verified 11/19/24 17:34 Augmentin) Family History Father Myocardial infarction Cancer Mother Breast cancer Surgical History S/P bilateral foot surgery History of arthroscopy of both knees History of tonsillectomy Social History Smoking Status: Never smoker ROS ROS ED Constitutional Constitutional ED: Denies chills, fever(s), subjective or sweats Cardiovascular Cardiovascular: Reports other Details: HPI narrative ; Denies chest pain or palpitations Gastrointestinal Gastrointestinal: Reports nausea and vomiting Integumentary Reports rash Hematologic/Lymphatic Hematologic/Lymphatic: Reports systems reviewed and no addt'l complaints, except as documented EXAM Physical Exam Const Vital Signs: 11/19/24 17:32 11/19/24 18:11 Temperature 98.2 F 98.2 F Temperature Source Oral Temporal Pulse Rate 79 74 Respiratory Rate 16 18 Blood Pressure 153/100 H 128/80 H Blood Pressure Mean 117 96 Pulse Ox 98 99 Oxygen Delivery Method Room Air Room Air Positive well nourished and well developed Constitutional Narrative: Vital signs are marked for an elevated blood pressure. General Appearance ED: well developed and NAD HEENT HEENT Narrative: Head is atraumatic no cephalic. Ears normal. Eyes PERRL and EOMs intact bilaterally General Eye ED: Yes scleral icterus Resp normal respiratory effort and clear to auscultation bilaterally Cardio regular rate, regular rhythm, S1 normal heart sound, S2 normal heart sound and no murmurs Extremity Negative for normal to inspection Extremity Narrative: There is swelling in the area of the right thumb. There is no fluctuance or induration. Puncture wounds noted. Unable to express any purulent material from the puncture wound. There is no lymphangitis. There is no epitrochlear or axillary lymphadenopathy. Median, radial and ulnar nerve function is intact. Neuro oriented x3, CN's II-XII intact bilaterally and no sensory deficits noted Sensorium / Orientation: alert Psych mental status grossly normal Skin Skin Narrative: Cellulitis right hand/thumb MDM MDM MDM Narrative Medical decision making narrative: X-ray was obtained to evaluate for retained foreign body. Patient is concerned and hit the bone. Would also determine if there is any injury to the proximal phalanx of the right thumb or first metacarpal bone. Since patient has hives from amoxicillin he was treated with clindamycin which will cover both streptococcal and staphylococcal organisms. Radiography Chest X-Ray - ED: Read by ED Physician (Three-view x-ray of the right hand reveals no foreign body or abnormality of the proximal phalanx of the thumb or first metacarpal bone. This is infinitely reviewed interpreted by me at 1847.) Discharge Plan Triage Chief Complaint: Wound ED Provider: Imtiaz Tapia Dx/Rx/DC Orders Clinical Impression: Puncture wound of hand, right, Cellulitis of multiple sites of right hand and fingers, Paroxysmal atrial fibrillation Instructions: ED Cellulitis Prescriptions: New clindamycin HCl [Cleocin HCl] 300 mg capsule 300 mg PO Q6H Qty: 28 0RF No Action levothyroxine 112 mcg tablet 112 mcg PO DAILY Patient Comments: TAKE 1 TABLET BY MOUTH IN THE MORNING Primary Care Provider: Liliana Cherry Referrals: Liliana Cherry MD [Primary Care Provider] - 2 Days for wound check Print Language: Persian Disposition Disposition: Home, Self Care
--- NOTE | 2024-11-19 18:00 | RAD_ITS ---
PROCEDURE: RIGHT HAND, THREE VIEWS REASON FOR EXAM: Puncture with a caulking gun. TECHNIQUE: 3 view(s) of the right hand COMPARISON: No relevant prior FINDINGS: No visible fracture. No suspicious bone lesion. Degenerative changes of the distal interphalangeal joints. Normal alignment. Soft tissues are unremarkable. RAD/Hand Min 3 Views IMPRESSION: No acute osseous abnormalities. Reading Location: [facility]
[2024-11-19 18:11] VITALS: BP 128/80; PULSE 74; RESP 18; TEMP 36.8; O2SAT 99
[2024-11-19] MEDS: Clindamycin HCl 150 MG Capsule 300 MG PO (18:13)
== END 2024-11-19 19:23 | disposition home or self-care (01) ==
PROVIDERS: Emergency Provider Emergency Medicine; PCP Internal Medicine; Visit Provider Emergency Medicine
DX: S61.431A Puncture wound without foreign body of right hand, initial encounter (principal); I48.0 Paroxysmal atrial fibrillation; L03.113 Cellulitis of right upper limb; W29.4XXA Contact with nail gun, initial encounter; E05.00 Thyrotoxicosis with diffuse goiter without thyrotoxic crisis or storm; Z88.0 Allergy status to penicillin; Z79.890 Hormone replacement therapy
CPT/HCPCS: 73130; 99282